=== PATIENT | male | born 1980 | race Caucasian/White ===

== ENCOUNTER 2020-02-15 12:12 | Emergency (ER) | payer OTHER ==
[~2020-02-15] VITALS: Ht 175.3 cm; Wt 146.5 kg
[2020-02-15 12:45] VITALS: BP 134/71
[2020-02-15 15:30] VITALS: BP 134/71
--- NOTE | 2020-02-15 15:30 | NUR ---
Note [email or web address] in EDM - 02/15/20 at 1533 by [facility] Patient discharged with v/s stable. Written and verbal after care instructions given and explained. Patient alert, oriented and verbalized understanding of instructions. Ambulatory with steady gait. All questions addressed prior to discharge. ID band removed. Patient advised to follow up with PMD. Rx of Augmentin, Azithromycin, Ibuprofen given. Patient educated on indication of medication including possible reaction and side effects. Opportunity to ask questions provided and answered.
--- NOTE | 2020-02-15 15:30 | NUR ---
WENT TO DISCHARGE PATIENT AND NO ONE FOUND OUTSIDE. PT LEFT WITHOUT DISCHARGE INSTRUCTIONS.
--- NOTE | 2020-02-15 16:30 | NUR ---
Patient discharged with v/s stable. Written and verbal after care instructions given and explained. Patient alert, oriented and verbalized understanding of instructions. Ambulatory with steady gait. All questions addressed prior to discharge. ID band removed. Patient advised to follow up with PMD. Rx of Azithromycin, Promethazine, Ibuprofen, Augmentin given. Patient educated on indication of medication including possible reaction and side effects. Opportunity to ask questions provided and answered.
== END 2020-02-15 16:30 | disposition home or self-care (01) ==
LOC: MED 12:12
DX: J18.9 Pneumonia, unspecified organism (principal); E66.01 Morbid (severe) obesity due to excess calories; I10 Essential (primary) hypertension; Z68.42 Body mass index [BMI] 45.0-49.9, adult
CPT/HCPCS: 71045; 99283